=== PATIENT | male | born 1995 | race Caucasian/White ===

== ENCOUNTER 2022-02-12 20:32 | Emergency (ER) | payer OTHER ==
[2022-02-12 21:44] LABS: B. PARAPERTUSSIS- RESP PCR PAN NOT DETECTED; B. PERTUSSIS- RESP PCR PANEL NOT DETECTED; C. PNEUMONIAE- RESP PCR PANEL NOT DETECTED; CORONAVIRUS 229E-RESP PCR NOT DETECTED; CORONAVIRUS HKU1-RESP PCR NOT DETECTED; CORONAVIRUS NL63-RESP PCR NOT DETECTED; CORONAVIRUS OC43-RESP PCR NOT DETECTED; HUMAN METAPNEUMOVIRUS NOT DETECTED; INFLUENZA A- RESP PCR PANEL NOT DETECTED; INFLUENZA B - RESP PCR PANEL NOT DETECTED; M. PNEUMONIAE- RESP PCR PANEL NOT DETECTED; PARAINFLUENZA VIRUS 1 NOT DETECTED; PARAINFLUENZA VIRUS 2 NOT DETECTED; PARAINFLUENZA VIRUS 3 NOT DETECTED; PARAINFLUENZA VIRUS 4 NOT DETECTED; RHINOVIRUS/ENTEROVIRUS DETECTED; RSV- RESP PCR PANEL NOT DETECTED; SARS-CoV-2 -RESP PCR PANEL NOT DETECTED
--- NOTE | 2022-02-13 00:08 | ED Physician Documentation ---
PD HPI URI - Stated complaint Stated Complaint: FEVER,COUGH,ACHES - Chief complaint Chief Complaint: Resp - History obtained from History obtained from: Patient - History of Present Illness Timing - onset: How many days ago (1-2) Timing duration: Days Timing details: Gradual onset Associated symptoms: Nasal congestion, Rhinorrhea, Sinus pain, Sore throat, Productive cough. No: Fever (Tmax 99.8) Improves by: Nothing Worsened by: Other (no exacerbating factors) Recently seen: Not recently seen Review of Systems Constitutional: reports: Myalgias. denies: Fever (Tmax 99.8) Nose: reports: Rhinorrhea / runny nose, Congestion, Sinus pressure / pain Throat: reports: Sore throat Respiratory: reports: Cough. denies: Dyspnea, Hemoptysis, Wheezing PD PAST MEDICAL HISTORY - Past Medical History Past Medical History: No - Past Surgical History Past Surgical History: Yes Ortho: Shoulder arthroplasty - Present Medications Home Medications: Ambulatory Orders Medication Instructions Recorded Confirmed Lisinopril/Hydrochlorothiazide 1 tab PO DAILY 02/12/22 02/12/22 [Zestoretic 10-12.5 mg Tablet] - Allergies Allergies/Adverse Reactions: Allergies Allergy/AdvReac Type Severity Reaction Status Date / Time No Known Drug Allergies Allergy Verified 02/12/22 20:38 - Social History Does the pt smoke?: No Smoking Status: Never smoker Does the pt drink ETOH?: No Does the pt have substance abuse?: No - Immunizations Immunizations are current?: Yes PD ED PE NORMAL - Vitals Vital signs reviewed: Yes - General General: Alert and oriented X 3, No acute distress, Well developed/nourished - HEENT HEENT: Moist mucous membranes, Pharynx benign - Neck Neck: Supple, no meningeal sign - Respiratory Respiratory: No respiratory distress, Clear bilaterally Results - Vitals Vitals: Oxygen O2 Source Room air - Labs Labs: Laboratory Tests 02/12/22 20:44 Nasal Adenovirus (PCR) NOT DETECTED Nasal B. parapertussis DNA (PCR) NOT DETECTED Nasal Coronavir 229E PCR NOT DETECTED Nasal Coronavir HKU1 PCR NOT DETECTED Nasal Coronavir NL63 PCR NOT DETECTED Nasal Coronavir OC43 PCR NOT DETECTED Nasal Enterovir/Rhinovir PCR DETECTED A Nasal Influenza B PCR NOT DETECTED Nasal Influenza A PCR NOT DETECTED Nasal Parainfluen 1 PCR NOT DETECTED Nasal Parainfluen 2 PCR NOT DETECTED Nasal Parainfluen 3 PCR NOT DETECTED Nasal Parainfluen 4 PCR NOT DETECTED Nasal RSV (PCR) NOT DETECTED Nasal B.pertussis DNA PCR NOT DETECTED Nasal C.pneumoniae (PCR) NOT DETECTED Joe Human Metapneumo PCR NOT DETECTED Nasal M.pneumoniae (PCR) NOT DETECTED Nasal SARS-CoV-2 (PCR) NOT DETECTED PD MEDICAL DECISION MAKING - ED course Complexity details: reviewed results, considered differential, d/w patient ED course: presents with URI symptoms and respiratory PCR panel is positive for enterovirus/rhinovirus. This was d/w patient, that it is a virus and there is no specific treatment. He is given work note. I advised him he can take ibuprofen for aches/pain, mucinex (or guaifensin) for sinus/chest congestion, and dextr omethorphan for cough suppression Departure - Departure Disposition: 01 Home, Self Care Clinical Impression: Upper respiratory tract infection Qualifiers: URI type: acute nasopharyngitis (common cold) Qualified Code(s): J00 - Acute nasopharyngitis [common cold] Condition: Good Instructions: ED URI Viral Follow-Up: MELA COTO MD [Primary Care Provider] - Comments: Your nasal swab tested positive for enterovirus/rhinovirus; these are often considered "common cold viruses", and so they rarely cause problems beyond upper respiratory infections but they are quite contagious. [id number] medications that might help your symptoms should include: 1) expectorant: guaifenesin (mucinex) 2) cough suppressant : dextromethorphan (DM) 3) anti-inflammatory : ibuprofen Forms: Activity restrictions Discharge Date/Time: 02/13/22 00:27
[2022-02-13 00:28] VITALS: BP 135/79
== END 2022-02-13 00:27 | disposition home or self-care (01) ==
LOC: ED 20:32
DX: J00 Acute nasopharyngitis [common cold] (principal); Z20.822 Contact with and (suspected) exposure to COVID-19
CPT/HCPCS: 87633; 99282; 99283